=== PATIENT | female | born 1960 | race Caucasian/White ===

== ENCOUNTER → 2016-12-18 | Outpatient (REF) | payer OTHER ==
[~2016-12-18] MED LIST: CIPR500T89 PO; METR500T10 PO; ULTR50TA PO; ZOFR4TAB3 PO
== END ==
LOC: M SFHCWAGY 09:15
PROVIDERS: ATTEND Nurse Practitioner Women's Health
DX: Z12.4 Encounter for screening for malignant neoplasm of cervix (principal)

== ENCOUNTER → 2016-12-18 | Outpatient (CLI) | payer OTHER ==
--- NOTE | 2016-12-18 09:57 | REPMRS ---
Patient History The patient states she had a clinical breast exam in 12/24 Patient is postmenopausal and had first child at age 38. Family history of breast cancer in sister under age 50. Digital Woman Screen Mammo: December 18, 2016 - Exam #: [id number] Bilateral CC and MLO view(s) were taken. Technologist: Tiffanie Estevez, Technologist Prior study comparison: December 14, 2015, digital woman screen mammo performed at [facility]. December 10, 2014, digital woman screen mammo performed at [facility]. FINDINGS: There are scattered fibroglandular densities. There has been no change in the appearance of the mammogram from the prior studies. There is a mild amount of residual fibroglandular tissue which is fairly symmetric. There is no interval development of dominant mass, architectural distortion, or clustered microcalcification suggestive of malignancy. ASSESSMENT: BI-RADS/ACR category 1 mammogram. Negative. Recommendation Routine screening mammogram in 1 year (for women over age 40). This mammogram was interpreted with the aid of an FDA-approved computer-aided dectection system. Electronically Signed By: Glen Langford MD 12/18/16 0957
== END ==
LOC: M WHC 08:42
PROVIDERS: ATTEND Nurse Practitioner Women's Health
DX: Z12.31 Encounter for screening mammogram for malignant neoplasm of breast (principal); Z78.0 Asymptomatic menopausal state; Z80.3 Family history of malignant neoplasm of breast

== ENCOUNTER 2016-12-24 11:30 | Emergency (ER) | payer OTHER ==
[~2016-12-24] VITALS: Ht 157.5 cm; Wt 117.9 kg
[2016-12-24] MEDS ORDERED: NS 1,000 ML IV ONE (12:45)
[2016-12-24] MEDS ORDERED: ONDANSETRON 4MG/2ML VIAL (J2405) IV ONE (12:45)
[2016-12-24] MEDS ORDERED: MORPHINE 2 MG/ML 1ML SYRINGE IV PRN (12:45)
[2016-12-24] MEDS ORDERED: ISOVUE-370 76% 100ML VIAL (Q9967) As Ordered ONE (12:51)
[2016-12-24 13:46] LABS: BASO # 0.1 K/mm3 (0.0-0.2); BASO % 0.6 % (0.0-1.0); EOS # 0.7 K/mm3 (0.0-0.50); EOS % 5.1 % (0.0-3.0); LARGE UNSTAINED CELL # 0.2 K/mm3 (0.0-0.4); LARGE UNSTAINED CELL % 1.6 % (0.0-4.0); LYMPH # 3.6 K/mm3 (1.5-4.5); LYMPH % 24.6 % (24.0-44.0); MEAN CORPUSCULAR HEMOGLOBIN 28.7 pg (27.0-33.0); MEAN CORPUSCULAR HGB CONC 32.5 g/dl (32.0-36.5); MEAN CORPUSCULAR VOLUME 88.2 fl (80.0-96.0); MONO # 0.7 K/mm3 (0.0-0.8); MONO % 5.2 % (0.0-5.0); NEUTROPHILS # 8.7 K/mm3 (1.8-7.7); NEUTROPHILS % 62.8 % (36.0-66.0); PLATELET COUNT, AUTOMATED 402 k/mm3 (150-450); RED CELL DISTRIBUTION WIDTH 12.4 % (11.5-14.5); WHITE BLOOD COUNT 13.8 K/mm3 (4.0-10.0)
[2016-12-24 13:48] LABS: INR 1.02
[2016-12-24 14:08] LABS: ALBUMIN 3.1 GM/DL (3.2-5.2); ALBUMIN/GLOBULIN RATIO 0.66 (1.00-1.93); ALKALINE PHOSPHATASE 90 U/L (45-117); ALT/SGPT 23 U/L (12-78); ANION GAP 7 MEQ/L (8-16); AST/SGOT 15 U/L (15-37); BILIRUBIN,DIRECT < 0.1 MG/DL (0.0-0.2); BILIRUBIN,TOTAL 0.4 MG/DL (0.2-1.0); BLOOD UREA NITROGEN 8 MG/DL (7-18); CALCIUM LEVEL 8.7 MG/DL (8.5-10.1); CARBON DIOXIDE LEVEL 31 MEQ/L (21-32); CHLORIDE LEVEL 101 MEQ/L (98-107); CREATININE FOR GFR 0.71 MG/DL (0.55-1.02); GLOMERULAR FILTRATION RATE > 60.0 (>51); GLUCOSE, FASTING 117 MG/DL (70-105); POTASSIUM SERUM 3.6 MEQ/L (3.5-5.1); SODIUM LEVEL 139 MEQ/L (136-145); TOTAL PROTEIN 7.8 GM/DL (6.4-8.2)
--- NOTE | 2016-12-24 15:10 | REP ---
CT study abdomen and pelvis with IV but without oral contrast: History: Left lower quadrant pain, question diverticulitis. CT contrast dose: 100 ml of Isovue [address] findings: Preliminary mail clerk radiograph demonstrates an unremarkable bowel gas pattern. The lung bases are clear except for some mild linear plate-like atelectasis in the left lower lobe. There is moderate diffuse fatty infiltration of the liver with areas of fat sparing near the gallbladder. There are two small gallstones in the neck of the gallbladder. No adrenal lesion is seen on either side. The kidneys enhance symmetrically and are morphologically intact. The right kidney is somewhat ptotic. Small and large intestinal bowel loops are normal in the upper abdomen. There is no evidence of free intraperitoneal air. Pelvic CT images demonstrate a segment of rectosigmoid colon involved with mural thickening and pericolonic fat stranding. There is diverticulosis in this segment of the colon and the findings are compatible with acute diverticulitis. No abscess seen. No bony destructive lesion is appreciated. Impression: 1. Findings compatible with acute diverticulitis rectosigmoid colon without evidence of abscess or free air. 2. Moderate diffuse fatty infiltration of the liver. 3. Cholelithiasis. Signed by Gregg Richards MD 12/24/2016 06:27 P
[2016-12-24] MEDS ORDERED: METR500T10 PO (15:22)
[2016-12-24] MEDS ORDERED: ZOFR4TAB3 PO (15:22)
[2016-12-24] MEDS ORDERED: ULTR50TA PO (15:22)
[2016-12-24] MEDS ORDERED: CIPR500T89 PO (15:22)
[2016-12-24 15:37] VITALS: BP 142/93
== END 2016-12-24 15:39 | disposition home or self-care (01) ==
LOC: M ED 12:57
DX: K80.20 Calculus of gallbladder without cholecystitis without obstruction (principal); K57.32 Diverticulitis of large intestine without perforation or abscess without bleeding
CPT/HCPCS: 36415; 74177; 80048; 80076; 81001; 83605; 83690; 85025; 85610; 85730; 96361; 96374; 96375; 99283; J2405; Q9967

== ENCOUNTER 2017-04-15 08:45 | Outpatient (CLI) | payer OTHER ==
[~2017-04-15] VITALS: Ht 157.5 cm; Wt 117.9 kg
[~2017-04-15 08:45] MED LIST changes: +CIPR-249 PO; -CIPR500T89 PO; +METR1TAB66 PO; -METR500T10 PO; +NS 1,000 ML IV SCH; -ULTR50TA PO; +ULTR50TA8 PO
[2017-04-15] MEDS ORDERED: LIDOCAINE 2% INJ 100 MG/5 ML SDV (FOR ANES.) As Ordered ONE (08:47)
[2017-04-15] MEDS ORDERED: PROPOFOL 200 MG/20 ML VIAL As Ordered ONE (08:47)
--- NOTE | 2017-04-15 09:36 | ROOR ---
Patient Name: Claire Mishra Procedure Date: 04/15/2017 9:12 AM Date of : 1960 Age: 57 Room: [facility] Gender: Female Note Status: Finalized Procedure: Total Colonoscopy to Cecum + Cold Snare Polypectomy + Hemoclips Indications: Screening for colorectal malignant neoplasm Providers: José Luis Conley MD Referring MD: KAMALJIT WEINSTEIN MD Requesting Provider: Medicines: Monitored Anesthesia Care Complications: No immediate complications. Procedure: Pre-Anesthesia Assessment: - The heart rate, respiratory rate, oxygen saturations, blood pressure, adequacy of pulmonary ventilation, and response to care were monitored throughout the procedure. The Colonoscope was introduced through the anus and advanced to the cecum, identified by appendiceal orifice and ileocecal valve. The colonoscopy was performed without difficulty. The patient tolerated the procedure well. The quality of the bowel preparation was good. Findings: The perianal and digital rectal examinations were normal. Non-bleeding internal hemorrhoids were found during retroflexion. The hemorrhoids were small and Grade I (internal hemorrhoids that do not prolapse). Scattered small-mouthed diverticula were found in the recto-sigmoid colon, sigmoid colon and descending colon. A medium polyp was found in the proximal transverse colon. The polyp was sessile. The polyp was removed with a cold snare. Resection and retrieval were complete. To prevent bleeding after the polypectomy, three hemostatic clips were successfully placed (MR conditional). There was no bleeding at the end of the procedure. The exam was otherwise without abnormality on direct and retroflexion views. Impression: - Non-bleeding internal hemorrhoids. - Diverticulosis in the recto-sigmoid colon, in the sigmoid colon and in the descending colon. - One medium polyp in the proximal transverse colon, removed with a cold snare. Resected and retrieved. Clips (MR conditional) were placed. - The examination was otherwise normal on direct and retroflexion views. - The exam was otherwise normal to the cecum. Recommendation: - Patient has a contact number available for emergencies. The signs and symptoms of potential delayed complications were discussed with the patient. Return to normal activities tomorrow. Written discharge instructions were provided to the patient. - High fiber diet. - Discharge patient to home. - Continue present medications. - Await pathology results. - Telephone GI clinic for pathology results in 1 week. - Repeat colonoscopy for surveillance based on pathology results. - Return to referring physician. - Check Portal Online for Path Results.([email or web address]) - The findings and recommendations were discussed with the patient's family. José Luis Conley MD José Luis Conley MD 04/15/2017 9:36:26 AM This report has been signed electronically. Number of Addenda: 0 Note Initiated On: 04/15/2017 9:12 AM Estimated Blood Loss: Estimated blood loss: none.
[2017-04-15 09:55] VITALS: BP 149/89
== END 2017-04-15 10:00 | disposition home or self-care (01) ==
LOC: M OPP 08:45
PROVIDERS: ATTEND Internal Medicine Gastroenterology
DX: Z12.11 Encounter for screening for malignant neoplasm of colon (principal); K64.0 First degree hemorrhoids; K57.30 Diverticulosis of large intestine without perforation or abscess without bleeding; D12.3 Benign neoplasm of transverse colon; M19.90 Unspecified osteoarthritis, unspecified site; Z87.891 Personal history of nicotine dependence

== ENCOUNTER 2017-08-26 15:22 | Emergency (ER) | payer OTHER ==
[~2017-08-26] VITALS: Ht 157.5 cm; Wt 113.6 kg
[~2017-08-26 15:22] MED LIST changes: -NS 1,000 ML IV SCH
[2017-08-26] MEDS ORDERED: IBUPROFEN 600 MG TAB PO ONE (17:15)
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
[2017-08-26] MEDS ORDERED: NAPR500T3 PO (18:26)
[2017-08-26] MEDS ORDERED: ROBA500T PO (18:26)
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
[2017-08-26 18:35] VITALS: BP 178/76
== END 2017-08-26 18:39 | disposition home or self-care (01) ==
LOC: M ED 17:25
DX: Z04.1 Encounter for examination and observation following transport accident (principal); M62.830 Muscle spasm of back; M54.5 Low back pain; V49.49XA Driver injured in collision with other motor vehicles in traffic accident, initial encounter; Y92.410 Unspecified street and highway as the place of occurrence of the external cause; Y93.89 Activity, other specified; Y99.8 Other external cause status

== ENCOUNTER 2017-09-04 09:13 | Emergency (ER) | payer OTHER | END 2017-09-04 09:50 | disposition home or self-care (01) | LOC: M ED 09:13 | DX: M54.12 Radiculopathy, cervical region (principal); M54.41 Lumbago with sciatica, right side; Z87.891 Personal history of nicotine dependence | CPT/HCPCS: 99283 ==

== ENCOUNTER 2017-09-29 11:30 | Emergency (ER) | payer OTHER | END 2017-09-29 14:23 | disposition home or self-care (01) | LOC: M ED 11:30 | DX: M54.2 Cervicalgia (principal); Z87.891 Personal history of nicotine dependence; I10 Essential (primary) hypertension; M54.9 Dorsalgia, unspecified; Z79.899 Other long term (current) drug therapy | CPT/HCPCS: 99283 ==

== ENCOUNTER → 2017-12-04 | Outpatient (CLI) | payer OTHER | LOC: M RAD 12:56 | DX: M51.26 Other intervertebral disc displacement, lumbar region (principal); M51.27 Other intervertebral disc displacement, lumbosacral region; M48.00 Spinal stenosis, site unspecified | CPT/HCPCS: 72148 ==

== ENCOUNTER → 2018-03-25 | Outpatient (CLI) | payer OTHER ==
[2018-03-25 09:41] LABS: HEMOGLOBIN 13.5 g/dl (12.0-15.5); MEAN CORPUSCULAR HEMOGLOBIN 29.1 pg (27.0-33.0); MEAN CORPUSCULAR HGB CONC 32.9 g/dl (32.0-36.5); MEAN CORPUSCULAR VOLUME 88.4 fl (80.0-96.0); PLATELET COUNT, AUTOMATED 301 10^3/uL (150-450); RED BLOOD COUNT 4.64 10^6/uL (4.00-5.40); RED CELL DISTRIBUTION WIDTH 13.4 % (11.5-14.5); WHITE BLOOD COUNT 8.4 10^3/uL (4.0-10.0)
[2018-03-25 10:05] LABS: ESTIMATED AVERAGE GLUCOSE 137 MG/DL (60-110); HEMOGLOBIN A1c 6.4 %
[2018-03-25 10:07] LABS: ALBUMIN 3.4 GM/DL (3.2-5.2); ALBUMIN/GLOBULIN RATIO 0.97 (1.00-1.93); ALKALINE PHOSPHATASE 76 U/L (45-117); ALT/SGPT 24 U/L (12-78); ANION GAP 8 MEQ/L (8-16); AST/SGOT 21 U/L (7-37); BILIRUBIN,TOTAL 0.5 MG/DL (0.2-1.0); BLOOD UREA NITROGEN 11 MG/DL (7-18); CALCIUM LEVEL 8.4 MG/DL (8.5-10.1); CARBON DIOXIDE LEVEL 28 MEQ/L (21-32); CHLORIDE LEVEL 107 MEQ/L (98-107); CHOLESTEROL LEVEL 219 MG/DL (<200); GLOMERULAR FILTRATION RATE > 60.0 (>51); GLUCOSE, FASTING 126 MG/DL (70-100); HDL CHOLESTEROL 25 MG/DL (>40); NON-HDL-C 194 MG/DL; POTASSIUM SERUM 4.3 MEQ/L (3.5-5.1); SODIUM LEVEL 143 MEQ/L (136-145); TOTAL PROTEIN 6.9 GM/DL (6.4-8.2); TRIGLYCERIDES LEVEL 290 MG/DL (<150)
[2018-03-25 11:38] LABS: TOTAL 25(OH) VITAMIN D 20.5 NG/ML (30.0-100.0)
== END ==
LOC: M LAB 08:18
DX: E03.9 Hypothyroidism, unspecified (principal); R53.83 Other fatigue; I10 Essential (primary) hypertension; R94.31 Abnormal electrocardiogram [ECG] [EKG]
CPT/HCPCS: 71046

== ENCOUNTER 2018-04-07 20:50 | Emergency (ER) | payer OTHER | END 2018-04-07 22:29 | disposition home or self-care (01) | LOC: M ED 20:50 | DX: T81.31XA Disruption of external operation (surgical) wound, not elsewhere classified, initial encounter (principal); Y74.3 Surgical instruments, materials and general hospital and personal-use devices (including sutures) associated with adverse incidents; Z79.899 Other long term (current) drug therapy | CPT/HCPCS: 99283 ==

== ENCOUNTER → 2018-06-11 | Outpatient (REF) | payer OTHER ==
[2018-06-14 15:28] LABS: HPV HYBRID CAPTURE II Negative (Negative)
== END ==
LOC: M SFHCWAGY 13:39
DX: Z12.4 Encounter for screening for malignant neoplasm of cervix (principal)

== ENCOUNTER → 2018-06-11 | Outpatient (CLI) | payer OTHER | LOC: M WHC 13:25 | DX: Z12.31 Encounter for screening mammogram for malignant neoplasm of breast (principal) | CPT/HCPCS: 77067 ==

== ENCOUNTER → 2018-06-19 | Outpatient (CLI) | payer OTHER | LOC: M WHC 13:18 | DX: N95.0 Postmenopausal bleeding (principal); R93.89 Abnormal findings on diagnostic imaging of other specified body structures | CPT/HCPCS: 76830 ==

== ENCOUNTER → 2018-06-20 | Outpatient (REF) | payer OTHER | LOC: M SFHCWAGY 11:34 | DX: N95.0 Postmenopausal bleeding (principal); R93.89 Abnormal findings on diagnostic imaging of other specified body structures; N85.8 Other specified noninflammatory disorders of uterus | CPT/HCPCS: 88305 ==

== ENCOUNTER → 2019-03-24 | Outpatient (CLI) | payer OTHER ==
[~2019-03-24] MED LIST changes: +METO1TAB87 PO; +METR-265 PO; -METR1TAB66 PO; +NAPR-885 PO; +PRAV40TA2; +ROBA500T PO; +ROBA750T4 PO; +SOMA250T PO; +ZOFR4TAB14 PO; -ZOFR4TAB3 PO
[2019-03-24 07:17] LABS: HEMATOCRIT 43.9 % (36.0-47.0); HEMOGLOBIN 14.4 g/dl (12.0-15.5); MEAN CORPUSCULAR HEMOGLOBIN 29.3 pg (27.0-33.0); MEAN CORPUSCULAR HGB CONC 32.8 g/dl (32.0-36.5); MEAN CORPUSCULAR VOLUME 89.2 fl (80.0-96.0); PLATELET COUNT, AUTOMATED 336 10^3/uL (150-450); RED BLOOD COUNT 4.92 10^6/uL (4.00-5.40); WHITE BLOOD COUNT 9.4 10^3/uL (4.0-10.0)
[2019-03-24 07:35] LABS: HEMOGLOBIN A1c 6.4 %
[2019-03-24 07:54] LABS: ALBUMIN 3.5 GM/DL (3.2-5.2); ALT/SGPT 30 U/L (12-78); BILIRUBIN,TOTAL 0.5 MG/DL (0.2-1.0); BLOOD UREA NITROGEN 12 MG/DL (7-18); CALCIUM LEVEL 8.7 MG/DL (8.5-10.1); CARBON DIOXIDE LEVEL 31 MEQ/L (21-32); CHLORIDE LEVEL 107 MEQ/L (98-107); CHOLESTEROL LEVEL 209 MG/DL (<200); CHOLESTEROL RISK RATIO 8.038 (<5); GLOMERULAR FILTRATION RATE > 60.0 (>51); GLUCOSE, FASTING 114 MG/DL (70-100); HDL CHOLESTEROL 26 MG/DL (>40); LDL CHOLESTEROL 123 MG/DL (<100); NON-HDL-C 183 MG/DL; POTASSIUM SERUM 5.1 MEQ/L (3.5-5.1); SODIUM LEVEL 142 MEQ/L (136-145); TRIGLYCERIDES LEVEL 302 MG/DL (<150)
[2019-03-24 09:57] LABS: TOTAL 25(OH) VITAMIN D 47.9 NG/ML (30.0-100.0)
== END ==
LOC: M LAB 06:40
PROVIDERS: ATTEND Family Medicine
DX: I10 Essential (primary) hypertension (principal); E11.9 Type 2 diabetes mellitus without complications

== ENCOUNTER → 2019-07-14 | Outpatient (CLI) | payer OTHER ==
--- NOTE | 2019-07-14 13:01 | REPMRS ---
Patient History The patient states she had a clinical breast exam in 07/2019. Patient is postmenopausal, has history of endometrial cancer at age 58, and had first child at age 38. Family history of breast cancer under age 50 in sister. Digital Woman Screen Mammo: July 14, 2019 - Exam #: [id number] Bilateral CC and MLO view(s) were taken. Technologist: Tiffanie Estevez, Technologist Prior study comparison: June 11, 2018, bilateral digital woman screen mammo performed at [facility]. December 18, 2016, digital woman screen mammo performed at [facility]. December 14, 2015, digital woman screen mammo performed at [facility]. FINDINGS: The breast tissue is almost entirely fat. There has been no change in the appearance of the mammogram from the prior studies. There is no interval development of dominant mass, architectural distortion, or grouped microcalcification typical of malignancy. 3-D tomosynthesis shows no additional findings. Assessment: BI-RADS/ACR category 1 mammogram. Negative Mammogram. Recommendation Breast MRI of both breasts in 6 months. Routine screening mammogram of both breasts in 1 year (for women over age 40). This patient's Lifetime Breast Cancer RIsk is estimated at 26.9 %. Annual screening Breast MRI scanniing is recommended for patient's whose lifetime risk assessment is over 20%. This mammogram was interpreted with the aid of an FDA-approved computer-aided dectection system. Electronically Signed By: Heber Richards MD 07/14/19 [id number]
== END ==
LOC: M WHC 11:43
PROVIDERS: ATTEND Nurse Practitioner Women's Health
DX: Z12.31 Encounter for screening mammogram for malignant neoplasm of breast (principal); Z80.3 Family history of malignant neoplasm of breast

== ENCOUNTER → 2019-08-11 | Outpatient (REF) | payer OTHER | LOC: M LAB REF 09:28 | PROVIDERS: ATTEND Physician Assistant | DX: J02.9 Acute pharyngitis, unspecified (principal) ==

== ENCOUNTER → 2019-08-13 | Outpatient (REF) | payer OTHER | LOC: M PLALAB 15:23 | PROVIDERS: ATTEND Nurse Practitioner Women's Health | DX: Z12.72 Encounter for screening for malignant neoplasm of vagina (principal); Z90.710 Acquired absence of both cervix and uterus | CPT/HCPCS: 87624; G0123 ==

== ENCOUNTER → 2019-11-12 | Outpatient (REF) | payer OTHER | LOC: M SFHCWAGY 10:51 | PROVIDERS: ATTEND Nurse Practitioner Women's Health | DX: Z12.72 Encounter for screening for malignant neoplasm of vagina (principal); Z85.41 Personal history of malignant neoplasm of cervix uteri ==

== ENCOUNTER → 2020-03-28 | Outpatient (CLI) | payer OTHER ==
[~2020-03-28] MED LIST changes: +PROHANCE 279.3MG/ML 15ML VIAL As Ordered ONE; +PROHANCE 279.3MG/ML 5ML VIAL As Ordered ONE
--- NOTE | 2020-03-28 13:37 | REP ---
BILATERAL BREAST MRI STUDY WITHOUT AND WITH IV GADOLINIUM: HISTORY: Genetic susceptibility to malignant neoplasm of the breast. Comparison mammography July 14, 2019. TECHNIQUE: Three Cecile MRI imaging was performed with a dedicated breast coil. Axial, coronal, and sagittal T1 and T2-weighted scans were obtained with and without fat saturation in the usual fashion. The study includes dynamically acquired post gadolinium enhanced imaging subtraction imaging. Maximal intensity projection and multiplanar re-formation imaging is included as well. The study was interpreted with the aid of [employer], an FDA approved computer-aided detection (CAD) software program, on a dedicated breast MRI work station. The gadolinium enhancement dose is 20 mL of intravenous ProHance. FINDINGS: There is a mild pattern of scattered fibroglandular tissue. Breast parenchyma is predominately fat replaced. There is no evidence of axillary adenopathy or significant breast cystic change on either side. No suspicious morphologic abnormality is identified in either breast on high-resolution pre- and postcontrast T1- and T2-weighted scans. Dynamically acquired sequential post contrast images show no suspicious focus of enhancement or washout in either breast. Subtraction images show no additional abnormality. There is no significant background parenchymal enhancement. IMPRESSION: BIRADS category 1 negative findings. Repeat screening breast MRI six scanning is recommended 1 year. Annual screening mammography should continue as well. Electronically Signed by Gregg Richards MD 03/28/2020 04:18 P
== END ==
LOC: M RAD 08:17
PROVIDERS: ATTEND Surgery
DX: Z15.01 Genetic susceptibility to malignant neoplasm of breast (principal)

== ENCOUNTER → 2020-07-15 | Outpatient (REF) | payer OTHER ==
[~2020-07-15] MED LIST changes: -PROHANCE 279.3MG/ML 15ML VIAL As Ordered ONE; -PROHANCE 279.3MG/ML 5ML VIAL As Ordered ONE
== END ==
LOC: M SFHCWAGY 10:05
PROVIDERS: ATTEND Nurse Practitioner Women's Health
DX: Z12.72 Encounter for screening for malignant neoplasm of vagina (principal); Z85.41 Personal history of malignant neoplasm of cervix uteri
CPT/HCPCS: 87624; G0123

== ENCOUNTER → 2020-07-15 | Outpatient (CLI) | payer OTHER ==
--- NOTE | 2020-07-15 16:45 | REPMRS ---
Patient History The patient states she had a clinical breast exam in 07/2020. Patient is postmenopausal, has history of endometrial cancer at age 58, and had first child at age 38. Family history of breast cancer under age 50 in sister, pancreatic cancer at age 65 in brother. No Hormone Replacement Therapy 3D TOMOSYNTHESIS WAS PERFORMED. Volpara breast density a. Digital Woman Screen Mammo: July 15, 2020 - Exam #: [id number] Bilateral CC and MLO view(s) were taken. Technologist: Destinee Scherer, Technologist Prior study comparison: July 14, 2019, bilateral digital woman screen mammo performed at [facility]. June 11, 2018, bilateral digital woman screen mammo performed at [facility]. FINDINGS: There are scattered fibroglandular densities. There has been no change in the appearance of the mammogram from the prior studies. There is a mild amount of residual fibroglandular tissue which is fairly symmetric. There is no interval development of dominant mass, architectural distortion, or clustered microcalcification suggestive of malignancy. Assessment: BI-RADS/ACR category 1 mammogram. Negative Mammogram. Recommendation Routine screening mammogram in 1 year (for women over age 40). This mammogram was interpreted with the aid of an FDA-approved computer-aided dectection system. THE LIFETIME RISK OF BREAST CANCER IS 26.2%, THEREFORE SUPPLEMENTAL SCREENING MRI OF THE BREASTS IS RECOMMENDED IN 6 MONTHS. Electronically Signed By: Glen Langford MD 07/15/20 [id number]
== END ==
LOC: M WHC 15:40
PROVIDERS: ATTEND Nurse Practitioner Women's Health
DX: Z12.31 Encounter for screening mammogram for malignant neoplasm of breast (principal); Z15.89 Genetic susceptibility to other disease; Z80.3 Family history of malignant neoplasm of breast; Z80.0 Family history of malignant neoplasm of digestive organs; Z85.44 Personal history of malignant neoplasm of other female genital organs

== ENCOUNTER → 2020-07-23 | Outpatient (CLI) | payer OTHER ==
[2020-07-23 09:08] LABS: HEMATOCRIT 44.6 % (36.0-47.0); MEAN CORPUSCULAR HEMOGLOBIN 28.3 pg (27.0-33.0); MEAN CORPUSCULAR HGB CONC 31.4 g/dl (32.0-36.5); MEAN CORPUSCULAR VOLUME 90.1 fl (80.0-96.0); PLATELET COUNT, AUTOMATED 352 10^3/uL (150-450); RED BLOOD COUNT 4.95 10^6/uL (4.00-5.40); WHITE BLOOD COUNT 8.8 10^3/uL (4.0-10.0)
[2020-07-23 09:37] LABS: ALBUMIN 3.5 GM/DL (3.2-5.2); ALT/SGPT 20 U/L (12-78); BILIRUBIN,TOTAL 0.5 MG/DL (0.2-1.0); BLOOD UREA NITROGEN 14 MG/DL (7-18); CALCIUM LEVEL 8.6 MG/DL (8.5-10.1); CARBON DIOXIDE LEVEL 25 MEQ/L (21-32); CHLORIDE LEVEL 107 MEQ/L (98-107); CHOLESTEROL LEVEL 164 MG/DL (<200); GLOMERULAR FILTRATION RATE > 60.0 (>51); GLUCOSE, FASTING 116 MG/DL (70-100); HDL CHOLESTEROL 31 MG/DL (>40); LDL CHOLESTEROL 98 MG/DL (<100); NON-HDL-C 133 MG/DL; POTASSIUM SERUM 4.5 MEQ/L (3.5-5.1); SODIUM LEVEL 140 MEQ/L (136-145); THYROID STIMULATING HORMONE 0.837 uIU/ML (0.358-3.740); TRIGLYCERIDES LEVEL 177 MG/DL (<150)
[2020-07-23 09:44] LABS: HEMOGLOBIN A1c 5.9 %
[2020-07-25 11:48] LABS: TOTAL 25(OH) VITAMIN D 81.5 NG/ML (30.0-100.0)
== END ==
LOC: M LAB 08:23
PROVIDERS: ATTEND Family Medicine
DX: D64.9 Anemia, unspecified (principal); R53.83 Other fatigue; E03.9 Hypothyroidism, unspecified

== ENCOUNTER 2020-11-12 21:14 | Emergency (ER) | payer OTHER ==
[~2020-11-12] VITALS: Ht 157.5 cm; Wt 116.3 kg
[2020-11-12] MEDS ORDERED: LEVO75TA4 PO (21:27)
[2020-11-12] MEDS ORDERED: METF500T13 PO (21:27)
[2020-11-12] MEDS ORDERED: LIDOCAINE 2% MDV 20ML VIAL SC ONE (22:10)
[2020-11-12] MEDS ORDERED: BOOSTRIX/ADACEL VACCINE (DIPHTH/PERTUSS/ACELL/TETANUS) 0.5ML SYR IM ONE (22:10)
[2020-11-12] MEDS ORDERED: CEPH500C PO (22:48)
[2020-11-12] MEDS ORDERED: CEPHALEXIN 500 MG CAP PO ONE (22:50)
[2020-11-12] MEDS ORDERED: NEOSPORIN OINT 0.9 GM PKT TOP ONE (22:50)
[2020-11-12 23:02] VITALS: BP 170/82
== END 2020-11-12 23:03 | disposition home or self-care (01) ==
LOC: M ED 21:14
DX: S61.216A Laceration without foreign body of right little finger without damage to nail, initial encounter (principal); W26.8XXA Contact with other sharp object(s), not elsewhere classified, initial encounter; Y92.018 Other place in single-family (private) house as the place of occurrence of the external cause; I10 Essential (primary) hypertension; E11.9 Type 2 diabetes mellitus without complications; E03.9 Hypothyroidism, unspecified; E78.00 Pure hypercholesterolemia, unspecified; Z79.899 Other long term (current) drug therapy; Z79.84 Long term (current) use of oral hypoglycemic drugs

== ENCOUNTER → 2021-03-06 | Outpatient (CLI) | payer OTHER ==
[~2021-03-06] MED LIST changes: +CEPH500C PO; +LEVO75TA4 PO; +METF500T13 PO
[2021-03-06 11:33] LABS: BLOOD UREA NITROGEN 14 MG/DL (7-18); CREATININE FOR GFR 0.61 MG/DL (0.55-1.30); GLOMERULAR FILTRATION RATE > 60.0 (>51)
== END ==
LOC: M PLALAB 08:31
PROVIDERS: ATTEND Nurse Practitioner Women's Health
DX: Z01.812 Encounter for preprocedural laboratory examination (principal); Z79.899 Other long term (current) drug therapy

== ENCOUNTER → 2021-03-10 | Outpatient (CLI) | payer OTHER ==
[~2021-03-10] MED LIST changes: +PROHANCE 279.3MG/ML 15ML VIAL As Ordered ONE; +PROHANCE 279.3MG/ML 5ML VIAL As Ordered ONE
--- NOTE | 2021-03-10 16:49 | REP ---
INDICATION: (+) GENE SCREENING HIGH RISK BREAST SCREENING. COMPARISON: Comparison breast MRI study is from March 28, 2020. Comparison mammography July 15, 2020. TECHNIQUE: Three Cecile MRI imaging was performed with a dedicated breast coil. Axial, coronal, and sagittal T1 and T2 weighted scans were obtained with and without fat saturation in the usual fashion. The study includes dynamically acquired post gadolinium-enhanced imaging with image subtraction. Maximum intensity projection and multi planar reformation imaging is included as well. This study is interpreted with the aid of [employer], an FDA approved computer aided detection (CAD) software program, on a dedicated breast MRI workstation. The gadolinium enhancement dose is 20 mL of intravenous ProHance. FINDINGS: There is a minimal amount of fibroglandular tissue bilaterally corresponding with the mammographic pattern. There is minimal background parenchymal enhancement. There is no evidence of axillary lymphadenopathy or significant breast cystic change. High-resolution pre and post-contrast T1 and T2 weighted scans show no suspicious morphologic abnormality in either breast. Dynamically acquired sequential postcontrast images show no suspicious area of enhancement and washout kinetics in either breast to suggest malignancy. Subtraction images show no additional abnormality. There has been no apparent change in the MR findings since the March 28, 2020 prior study. IMPRESSION: BI-RADS category 1 negative bilateral breast MRI findings. <Electronically signed by Heber Richards > 03/10/21 [id number]
== END ==
LOC: M RAD 14:44
PROVIDERS: ATTEND Nurse Practitioner Women's Health
DX: Z15.01 Genetic susceptibility to malignant neoplasm of breast (principal)
CPT/HCPCS: A9576; C8908

== ENCOUNTER → 2021-04-03 | Outpatient (CLI) | payer OTHER ==
[~2021-04-03] MED LIST changes: -PROHANCE 279.3MG/ML 15ML VIAL As Ordered ONE; -PROHANCE 279.3MG/ML 5ML VIAL As Ordered ONE
[2021-04-03 08:14] LABS: CREATININE FOR GFR 0.66 MG/DL (0.55-1.30); GLOMERULAR FILTRATION RATE > 60.0 (>51)
== END ==
LOC: M LAB 07:10
PROVIDERS: ATTEND Nurse Practitioner Family
DX: G11.3 Cerebellar ataxia with defective DNA repair (principal)

== ENCOUNTER → 2021-04-03 | Outpatient (CLI) | payer OTHER ==
[2021-04-03 07:41] LABS: HEMATOCRIT 42.9 % (36.0-47.0); HEMOGLOBIN 13.8 g/dl (12.0-15.5); MEAN CORPUSCULAR HEMOGLOBIN 29.1 pg (27.0-33.0); MEAN CORPUSCULAR HGB CONC 32.2 g/dl (32.0-36.5); MEAN CORPUSCULAR VOLUME 90.5 fl (80.0-96.0); PLATELET COUNT, AUTOMATED 336 10^3/uL (150-450); RED BLOOD COUNT 4.74 10^6/uL (4.00-5.40); WHITE BLOOD COUNT 10.2 10^3/uL (4.0-10.0)
[2021-04-03 07:56] LABS: HEMOGLOBIN A1c 6.7 %
[2021-04-03 08:24] LABS: ALBUMIN 3.4 GM/DL (3.2-5.2); ALT/SGPT 27 U/L (12-78); BILIRUBIN,TOTAL 0.5 MG/DL (0.2-1.0); BLOOD UREA NITROGEN 14 MG/DL (7-18); CALCIUM LEVEL 8.5 MG/DL (8.5-10.1); CARBON DIOXIDE LEVEL 29 MEQ/L (21-32); CHLORIDE LEVEL 108 MEQ/L (98-107); CHOLESTEROL LEVEL 162 MG/DL (<200); CREATININE FOR GFR 0.65 MG/DL (0.55-1.30); GLOMERULAR FILTRATION RATE > 60.0 (>51); GLUCOSE, FASTING 152 MG/DL (70-100); HDL CHOLESTEROL 26 MG/DL (>40); LDL CHOLESTEROL 91 MG/DL (<100); NON-HDL-C 136 MG/DL; POTASSIUM SERUM 4.4 MEQ/L (3.5-5.1); SODIUM LEVEL 141 MEQ/L (136-145); TOTAL PROTEIN 6.8 GM/DL (6.4-8.2); TRIGLYCERIDES LEVEL 223 MG/DL (<150)
[2021-04-03 10:52] LABS: TOTAL 25(OH) VITAMIN D 68.3 NG/ML (30.0-100.0)
== END ==
LOC: M LAB 07:13
PROVIDERS: ATTEND Family Medicine
DX: E03.9 Hypothyroidism, unspecified (principal); I10 Essential (primary) hypertension; E11.9 Type 2 diabetes mellitus without complications

== ENCOUNTER → 2021-07-18 | Outpatient (REF) | payer OTHER | LOC: M SFHCWAGY 13:25 | PROVIDERS: ATTEND Nurse Practitioner Women's Health | DX: Z12.72 Encounter for screening for malignant neoplasm of vagina (principal) ==

== ENCOUNTER → 2021-07-18 | Outpatient (CLI) | payer OTHER ==
--- NOTE | 2021-07-18 10:39 | REPMRS ---
Patient History The patient states she had a clinical breast exam on 07-18-2021. Family history of breast cancer under age 50 in sister, pancreatic cancer at age 65 in brother. No Hormone Replacement Therapy Tomosynthesis is performed. Volpara breast density is a. Patient states no breast complaints today. Patient has signed MRS History Sheet. Digital Woman Screen Mammo: July 18, 2021 - Exam #: [id number] Bilateral CC and MLO view(s) were taken. Technologist: Ashlee Katz, [place] Strip Inspector Prior study comparison: July 15, 2020, bilateral digital woman screen mammo performed at [facility]. July 14, 2019, bilateral digital woman screen mammo performed at [facility]. FINDINGS: There are scattered fibroglandular densities. There has been no change in the appearance of the mammogram from the prior studies. There is a mild amount of residual fibroglandular tissue which is fairly symmetric. There is no interval development of dominant mass, architectural distortion, or clustered microcalcification suggestive of malignancy. Assessment: BI-RADS/ACR category 1 mammogram. Negative Mammogram. Recommendation Routine screening mammogram in 1 year (for women over age 40). This mammogram was interpreted with the aid of an FDA-approved computer-aided dectection system. The Lifetime Breast Cancer Risk is estimated at 25.5%. Yearly supplemental screening MRI of the breasts is recommended for patients with an elevated lifetime risk of breast cancer of 20% or greater, in addition to annual screening mammography, staggered every 6 months. Electronically Signed By: Glen Langford MD 07/18/21 1038
== END ==
LOC: M WHC 08:19
PROVIDERS: ATTEND Nurse Practitioner Women's Health
DX: Z12.31 Encounter for screening mammogram for malignant neoplasm of breast (principal)

== ENCOUNTER → 2022-04-09 | Outpatient (CLI) | payer OTHER ==
[2022-04-09 13:24] LABS: BLOOD UREA NITROGEN 10 MG/DL (7-18); CALCIUM LEVEL 9.3 MG/DL (8.8-10.2); CARBON DIOXIDE LEVEL 29 MEQ/L (21-32); CHLORIDE LEVEL 102 MEQ/L (98-107); CREATININE FOR GFR 0.71 MG/DL (0.55-1.30); GLOMERULAR FILTRATION RATE > 60.0 (>45); GLUCOSE, FASTING 241 MG/DL (70-100); POTASSIUM SERUM 3.9 MEQ/L (3.5-5.1); SODIUM LEVEL 138 MEQ/L (136-145)
== END ==
LOC: M PLALAB 07:55
PROVIDERS: ATTEND Nurse Practitioner Women's Health
DX: Z91.89 Other specified personal risk factors, not elsewhere classified (principal); Z15.89 Genetic susceptibility to other disease; Z01.812 Encounter for preprocedural laboratory examination

== ENCOUNTER → 2022-04-09 | Outpatient (CLI) | payer OTHER ==
[2022-04-09 12:41] LABS: HEMATOCRIT 43.7 % (36.0-47.0); HEMOGLOBIN 14.1 g/dl (12.0-15.5); MEAN CORPUSCULAR HEMOGLOBIN 29.6 pg (27.0-33.0); MEAN CORPUSCULAR HGB CONC 32.3 g/dl (32.0-36.5); MEAN CORPUSCULAR VOLUME 91.6 fl (80.0-96.0); PLATELET COUNT, AUTOMATED 334 10^3/uL (150-450); RED BLOOD COUNT 4.77 10^6/uL (4.00-5.40); WHITE BLOOD COUNT 8.5 10^3/uL (4.0-10.0)
[2022-04-09 14:07] LABS: ALBUMIN 3.3 GM/DL (3.2-5.2); ALT/SGPT 38 U/L (12-78); BILIRUBIN,TOTAL 0.4 MG/DL (0.2-1.0); BLOOD UREA NITROGEN 10 MG/DL (7-18); CALCIUM LEVEL 9.1 MG/DL (8.8-10.2); CARBON DIOXIDE LEVEL 31 MEQ/L (21-32); CHLORIDE LEVEL 101 MEQ/L (98-107); CHOLESTEROL LEVEL 170 MG/DL (<200); CHOLESTEROL RISK RATIO 7.391 (<5); CREATININE FOR GFR 0.69 MG/DL (0.55-1.30); GLOMERULAR FILTRATION RATE > 60.0 (>45); GLUCOSE, FASTING 253 MG/DL (70-100); HDL CHOLESTEROL 23 MG/DL (>40); HEMOGLOBIN A1c 10.6 %; LDL CHOLESTEROL 77 MG/DL (<100); NON-HDL-C 147 MG/DL; POTASSIUM SERUM 4.8 MEQ/L (3.5-5.1); SODIUM LEVEL 136 MEQ/L (136-145); TOTAL 25(OH) VITAMIN D 85.1 NG/ML (30.0-100.0); TOTAL PROTEIN 6.9 GM/DL (6.4-8.2); TRIGLYCERIDES LEVEL 349 MG/DL (<150)
== END ==
LOC: M PLALAB 07:52
PROVIDERS: ATTEND Family Medicine
DX: D64.9 Anemia, unspecified (principal); R53.83 Other fatigue; E03.9 Hypothyroidism, unspecified

== ENCOUNTER → 2022-04-13 | Outpatient (CLI) | payer OTHER ==
[~2022-04-13] MED LIST changes: +PROHANCE 279.3MG/ML 15ML VIAL ONE; +PROHANCE 279.3MG/ML 5ML VIAL ONE
== END ==
LOC: M PLAIMG 08:56
PROVIDERS: ATTEND Nurse Practitioner Women's Health
DX: Z91.89 Other specified personal risk factors, not elsewhere classified (principal); Z15.89 Genetic susceptibility to other disease; N63.21 Unspecified lump in the left breast, upper outer quadrant; R92.8 Other abnormal and inconclusive findings on diagnostic imaging of breast; N60.11 Diffuse cystic mastopathy of right breast; N60.12 Diffuse cystic mastopathy of left breast
CPT/HCPCS: A9576; C8908

== ENCOUNTER → 2022-05-08 | Outpatient (CLI) | payer OTHER ==
[~2022-05-08] MED LIST changes: -PROHANCE 279.3MG/ML 15ML VIAL ONE; -PROHANCE 279.3MG/ML 5ML VIAL ONE
== END ==
LOC: M WHC 09:21
PROVIDERS: ATTEND Nurse Practitioner Women's Health
DX: R92.8 Other abnormal and inconclusive findings on diagnostic imaging of breast (principal); Z15.01 Genetic susceptibility to malignant neoplasm of breast
CPT/HCPCS: 77065; G0279

== ENCOUNTER → 2022-05-22 | Outpatient (CLI) | payer OTHER ==
[~2022-05-22] MED LIST changes: +**SFHN** LIDOCAINE 1% MDV 20ML VIAL ONE; +**SFHN** SODIUM BICARBONATE 8.4% 10MEQ 10ML VIAL ONE
[2022-05-22 10:47] VITALS: BP 146/74
== END ==
LOC: M WHCPRO 09:34
PROVIDERS: ATTEND Nurse Practitioner Women's Health
DX: C50.412 Malignant neoplasm of upper-outer quadrant of left female breast (principal)

== ENCOUNTER → 2022-06-27 | Outpatient (CLI) | payer OTHER ==
[~2022-06-27] MED LIST changes: -**SFHN** LIDOCAINE 1% MDV 20ML VIAL ONE; -**SFHN** SODIUM BICARBONATE 8.4% 10MEQ 10ML VIAL ONE
[2022-06-27 11:02] LABS: HEMATOCRIT 40.2 % (36.0-47.0); HEMOGLOBIN 13.4 g/dl (12.0-15.5); MEAN CORPUSCULAR HEMOGLOBIN 29.8 pg (27.0-33.0); MEAN CORPUSCULAR HGB CONC 33.3 g/dl (32.0-36.5); MEAN CORPUSCULAR VOLUME 89.3 fl (80.0-96.0); PLATELET COUNT, AUTOMATED 349 10^3/uL (150-450)
[2022-06-27 11:05] LABS: INR 0.88; PROTHROMBIN TIME 12.1 SECONDS (12.5-14.5)
[2022-06-27 11:13] LABS: HEMOGLOBIN A1c 9.1 %
[2022-06-27 11:35] LABS: ALBUMIN 3.5 GM/DL (3.2-5.2); ALT/SGPT 40 U/L (12-78); BILIRUBIN,TOTAL 0.4 MG/DL (0.2-1.0); BLOOD UREA NITROGEN 12 MG/DL (7-18); CALCIUM LEVEL 8.8 MG/DL (8.8-10.2); CARBON DIOXIDE LEVEL 29 MEQ/L (21-32); CHLORIDE LEVEL 105 MEQ/L (98-107); CHOLESTEROL LEVEL 151 MG/DL (<200); CHOLESTEROL RISK RATIO 5.807 (<5); CREATININE FOR GFR 0.66 MG/DL (0.55-1.30); GLOMERULAR FILTRATION RATE > 60.0 (>45); GLUCOSE, FASTING 171 MG/DL (70-100); HDL CHOLESTEROL 26 MG/DL (>40); LDL CHOLESTEROL 67 MG/DL (<100); NON-HDL-C 125 MG/DL; POTASSIUM SERUM 4.5 MEQ/L (3.5-5.1); SODIUM LEVEL 138 MEQ/L (136-145); THYROID STIMULATING HORMONE 0.924 uIU/ML (0.358-3.740); TOTAL PROTEIN 6.8 GM/DL (6.4-8.2); TRIGLYCERIDES LEVEL 290 MG/DL (<150)
== END ==
LOC: M RAD 09:51
PROVIDERS: ATTEND Family Medicine
DX: Z01.818 Encounter for other preprocedural examination (principal); I10 Essential (primary) hypertension; E03.9 Hypothyroidism, unspecified

== ENCOUNTER → 2022-07-01 | Outpatient (CLI) | payer OTHER ==
[~2022-07-01] MED LIST changes: +BIOT50005 SL; +COLL1CAP PO; +ERGO500029 PO; +METF10004 PO; -PRAV40TA2; +PRAV40TA2 PO; +QC F0.52 PO; +TIZA4CAP PO; +VITMTA PO
== END ==
LOC: M LABSMTC 12:03
PROVIDERS: ATTEND Anesthesiology
DX: Z01.812 Encounter for preprocedural laboratory examination (principal); Z20.822 Contact with and (suspected) exposure to COVID-19

== ENCOUNTER 2022-07-06 06:06 | Observation (INO) | payer OTHER ==
[~2022-07-06] VITALS: Ht 158.8 cm; Wt 109.0 kg
[2022-07-06] VITALS (7 sets, daily range): BP systolic 152–160; BP diastolic 78–92
[~2022-07-06 06:06] MED LIST changes: +HEPARIN SOD (PORCINE) 5000UNITS/ML 1ML VIAL/SYRINGE SQ ONE
[2022-07-06] MEDS ORDERED: LR 1,000 ML IV SCH ×3 (06:35→10:15)
[2022-07-06] MEDS ORDERED: BUPIVACAINE HCL 0.25% 10ML VIAL As Ordered ONE (06:54)
[2022-07-06] MEDS ORDERED: GENTAMICIN SULF 80MG/2ML VIAL As Ordered ONE (06:54)
[2022-07-06] MEDS ORDERED: BUPIVACAINE LIPOSOME/PF 1.3% 20ML VIAL (13.3MG/ML)(EXPAREL) As Ordered ONE (06:54)
[2022-07-06] MEDS ORDERED: propofoL 200 MG/20 ML VIAL As Ordered ONE (07:04)
[2022-07-06] MEDS ORDERED: LIDOCAINE 2% 100MG/5ML SDV (FOR ANES.) As Ordered ONE (07:04)
[2022-07-06] MEDS ORDERED: fentaNYL 250 MCG/5 ML INJECTION As Ordered ONE (07:04)
[2022-07-06] MEDS ORDERED: ROCURONIUM BROMIDE 50 MG/5 ML VIAL As Ordered ONE ×2 (07:04→09:05)
[2022-07-06] MEDS ORDERED: MIDAZOLAM INJ 2MG/2ML VIAL (J2250 PER 1MG) As Ordered ONE (07:04)
[2022-07-06] MEDS ORDERED: ONDANSETRON 4MG 2ML VIAL As Ordered ONE (07:05)
[2022-07-06] MEDS ORDERED: dexameTHASONE 4 MG/ML 1ML VIAL (J1100 PER 1MG) As Ordered ONE (07:05)
[2022-07-06] MEDS ORDERED: ceFAZolin 2 GM/D5W 50 ML IV BAG (J0690 PER 500MG) As Ordered ONE (07:24)
[2022-07-06] MEDS ORDERED: ceFAZolin SOD 2 GM in IV 1 EA IV ONE (08:00)
[2022-07-06] MEDS ORDERED: SCOPOLAMINE 1MG TRANSDERMAL PATCH TOP SCH (08:00)
[2022-07-06] MEDS ORDERED: SCOPOLAMINE 1MG TRANSDERMAL PATCH As Ordered ONE (08:01)
[2022-07-06] MEDS ORDERED: METOCLOPRAMIDE INJ 10MG/2ML VIAL (J2765 PER 1) As Ordered ONE (08:14)
[2022-07-06] MEDS ORDERED: ACETAMINOPHEN 1000MG 100ML IV BTL (OFIRMEV) (J0131 PER 10MG) As Ordered ONE (08:19)
[2022-07-06] MEDS ORDERED: SUGAMMADEX SODIUM 500 MG/5 ML VIAL (BRIDION) As Ordered ONE (08:19)
[2022-07-06] MEDS ORDERED: ONDANSETRON 4MG 2ML VIAL IV PRN ×2 (09:55→10:15)
[2022-07-06] MEDS ORDERED: HYDROMORPHONE HCL 0.5 MG/ 0.5 ML SYRINGE (J1170 PER 1) IV PRN (09:55)
[2022-07-06] MEDS ORDERED: fentaNYL 100 MCG/2 ML INJECTION IV PRN (09:55)
[2022-07-06] MEDS ORDERED: oxyCODONE 5MG TAB PO PRN (09:55)
[2022-07-06] MEDS ORDERED: MORPHINE 2 MG/ML 1ML VIAL IV PRN (10:05)
[2022-07-06] MEDS ORDERED: ACETAMINOPHEN TAB 650MG DOSE (2X325MG) PO PRN (10:15)
[2022-07-06] MEDS ORDERED: HOME MED LIST COMPLETE! XX SCH (16:05)
[2022-07-06] MEDS: ceFAZolin SOD 2 GM in IV 1 EA IV SCH (16:43)
[2022-07-06] MEDS: traMADol 50 MG TAB PO PRN (16:43)
[2022-07-07] MEDS: ceFAZolin SOD 2 GM in IV 1 EA IV SCH (00:06)
[2022-07-07] MEDS: traMADol 50 MG TAB PO PRN ×2 (00:14→08:41)
[2022-07-07 01:35] VITALS: BP 145/59
[2022-07-07 06:19] VITALS: BP 132/57
[2022-07-07] MEDS ORDERED: ULTR50TA8 PO (08:56)
== END 2022-07-07 12:35 | disposition home or self-care (01) ==
LOC: M SDC 06:06 → M ED INP 06:07 → M MS5PR 12:00
PROVIDERS: ADMIT Surgery; ATTEND Surgery
DX: D05.12 Intraductal carcinoma in situ of left breast (principal); Z15.01 Genetic susceptibility to malignant neoplasm of breast; N62 Hypertrophy of breast; Z17.0 Estrogen receptor positive status [ER+]; Z80.3 Family history of malignant neoplasm of breast; Z80.0 Family history of malignant neoplasm of digestive organs; R11.10 Vomiting, unspecified; I10 Essential (primary) hypertension; E07.9 Disorder of thyroid, unspecified; Z88.5 Allergy status to narcotic agent
CPT/HCPCS: 19285; 19301; 19316; 36415; 76942; 86850; 86900; 86901; 88302; 88307; 96372; 96374; 96376; A4648; C9290; J0131; J0690; J1100; J1580; J1644; J2250; J2405; J2765; J3010

== ENCOUNTER → 2022-07-27 | Outpatient (CLI) | payer OTHER ==
[~2022-07-27] MED LIST changes: -HEPARIN SOD (PORCINE) 5000UNITS/ML 1ML VIAL/SYRINGE SQ ONE
== END ==
LOC: M ONCR 11:49
PROVIDERS: ATTEND General Practice
DX: C50.912 Malignant neoplasm of unspecified site of left female breast (principal); Z15.01 Genetic susceptibility to malignant neoplasm of breast; I10 Essential (primary) hypertension; N62 Hypertrophy of breast; Z80.3 Family history of malignant neoplasm of breast; Z79.84 Long term (current) use of oral hypoglycemic drugs; Z79.890 Hormone replacement therapy; Z79.899 Other long term (current) drug therapy; Z80.0 Family history of malignant neoplasm of digestive organs; Z80.1 Family history of malignant neoplasm of trachea, bronchus and lung; Z88.5 Allergy status to narcotic agent; Z85.42 Personal history of malignant neoplasm of other parts of uterus; Z87.891 Personal history of nicotine dependence; Z90.710 Acquired absence of both cervix and uterus

== ENCOUNTER 2022-08-28 14:53 | Outpatient (RCR) | payer OTHER ==
[2022-09-07] MEDS ORDERED: ANAS1TAB2 PO (15:16)
== END 2022-09-08 ==
LOC: M ONCR 14:53
PROVIDERS: ATTEND General Practice
DX: D05.12 Intraductal carcinoma in situ of left breast (principal)

== ENCOUNTER → 2022-09-18 | Outpatient (CLI) | payer OTHER ==
[~2022-09-18] MED LIST changes: +ANAS1TAB2 PO
== END ==
LOC: M WHC 10:29
PROVIDERS: ATTEND Specialist
DX: Z85.3 Personal history of malignant neoplasm of breast (principal); Z79.811 Long term (current) use of aromatase inhibitors

== ENCOUNTER → 2022-09-20 | Outpatient (CLI) | payer OTHER ==
[2022-09-20 09:56] LABS: HEMATOCRIT 43.9 % (36.0-47.0); HEMOGLOBIN 14.1 g/dl (12.0-15.5); MEAN CORPUSCULAR HEMOGLOBIN 29.3 pg (27.0-33.0); MEAN CORPUSCULAR HGB CONC 32.1 g/dl (32.0-36.5); MEAN CORPUSCULAR VOLUME 91.1 fl (80.0-96.0); PLATELET COUNT, AUTOMATED 284 10^3/uL (150-450); RED BLOOD COUNT 4.82 10^6/uL (4.00-5.40); WHITE BLOOD COUNT 7.1 10^3/uL (4.0-10.0)
[2022-09-20 10:25] LABS: THYROID STIMULATING HORMONE 1.064 uIU/ML (0.55-4.78)
[2022-09-20 10:26] LABS: ALBUMIN 3.7 G/DL (3.2-5.2); ALKALINE PHOSPHATASE 65 U/L (46-116); ALT/SGPT 28 U/L (7.0-40); AST/SGOT 21 U/L (<34); BILIRUBIN,TOTAL 0.5 MG/DL (0.3-1.2); BLOOD UREA NITROGEN 14 MG/DL (9-23); CALCIUM LEVEL 9.7 MG/DL (8.3-10.6); CARBON DIOXIDE LEVEL 30 MMOL/L (20-31); CHLORIDE LEVEL 104 MMOL/L (98-107); CHOLESTEROL LEVEL 176 MG/DL (<200); CHOLESTEROL RISK RATIO 6.11 (<5); CREATININE FOR GFR 0.61 MG/DL (0.55-1.30); GLOMERULAR FILTRATION RATE > 60.0 (>45); GLUCOSE, FASTING 139 MG/DL (74-106); HDL CHOLESTEROL 28.8 MG/DL (>40); LDL CHOLESTEROL 104.8 MG/DL (<100); NON-HDL-C 147 MG/DL; POTASSIUM SERUM 5.2 MMOL/L (3.5-5.1); SODIUM LEVEL 141 MMOL/L (136-145); TOTAL PROTEIN 6.9 G/DL (5.7-8.2); TRIGLYCERIDES LEVEL 212 MG/DL (<150)
[2022-09-20 10:46] LABS: HEMOGLOBIN A1c 6.2 % (4.0-6.0)
[2022-09-20 14:37] LABS: TOTAL 25(OH) VITAMIN D 106.2 NG/ML (20.0-100.0)
== END ==
LOC: M LAB 09:19
PROVIDERS: ATTEND Family Medicine
DX: I10 Essential (primary) hypertension (principal)

== ENCOUNTER → 2023-02-26 | Outpatient (CLI) | payer OTHER | LOC: M ONCR 14:57 | PROVIDERS: ATTEND General Practice | DX: D05.12 Intraductal carcinoma in situ of left breast (principal); Z79.811 Long term (current) use of aromatase inhibitors; Z79.84 Long term (current) use of oral hypoglycemic drugs; Z87.891 Personal history of nicotine dependence; Z79.899 Other long term (current) drug therapy; Z92.3 Personal history of irradiation ==

== ENCOUNTER → 2023-03-21 | Outpatient (CLI) | payer OTHER ==
[2023-03-21 07:43] LABS: HEMATOCRIT 43.4 % (36.0-47.0); HEMOGLOBIN 13.7 g/dl (12.0-15.5); MEAN CORPUSCULAR HEMOGLOBIN 29.2 pg (27.0-33.0); MEAN CORPUSCULAR HGB CONC 31.6 g/dl (32.0-36.5); MEAN CORPUSCULAR VOLUME 92.5 fl (80.0-96.0); PLATELET COUNT, AUTOMATED 326 10^3/uL (150-450); RED BLOOD COUNT 4.69 10^6/uL (4.00-5.40); WHITE BLOOD COUNT 8.4 10^3/uL (4.0-10.0)
[2023-03-21 07:58] LABS: HEMOGLOBIN A1c 5.6 % (4.0-6.0)
[2023-03-21 08:09] LABS: ALBUMIN 3.6 G/DL (3.2-5.2); ALKALINE PHOSPHATASE 58 U/L (46-116); ALT/SGPT 12 U/L (7.0-40); AST/SGOT < 8 U/L (<34); BILIRUBIN,TOTAL 0.6 MG/DL (0.3-1.2); BLOOD UREA NITROGEN 19 MG/DL (9-23); CARBON DIOXIDE LEVEL 32 MMOL/L (20-31); CHLORIDE LEVEL 107 MMOL/L (98-107); CHOLESTEROL LEVEL 190 MG/DL (<200); CHOLESTEROL RISK RATIO 5.13 (<5); CREATININE FOR GFR 0.54 MG/DL (0.55-1.30); GLOMERULAR FILTRATION RATE > 60.0 (>45); GLUCOSE, FASTING 119 MG/DL (74-106); LDL CHOLESTEROL 117.4 MG/DL (<100); POTASSIUM SERUM 4.4 MMOL/L (3.5-5.1); SODIUM LEVEL 141 MMOL/L (136-145); TOTAL PROTEIN 6.6 G/DL (5.7-8.2); TRIGLYCERIDES LEVEL 178 MG/DL (<150)
[2023-03-21 08:10] LABS: THYROID STIMULATING HORMONE 0.855 uIU/ML (0.55-4.78); TOTAL 25(OH) VITAMIN D 109.5 NG/ML (20.0-100.0)
== END ==
LOC: M LAB 07:11
PROVIDERS: ATTEND Family Medicine
DX: I10 Essential (primary) hypertension (principal); R53.83 Other fatigue; E03.9 Hypothyroidism, unspecified

== ENCOUNTER → 2023-04-09 | Outpatient (CLI) | payer OTHER ==
[~2023-04-09] MED LIST changes: +METF-838
== END ==
LOC: M WHC 11:08
PROVIDERS: ATTEND Nurse Practitioner Women's Health
DX: C50.912 Malignant neoplasm of unspecified site of left female breast (principal); Z91.89 Other specified personal risk factors, not elsewhere classified; Z15.01 Genetic susceptibility to malignant neoplasm of breast
CPT/HCPCS: 77066; G0279

== ENCOUNTER → 2023-05-07 | Outpatient (CLI) | payer OTHER ==
[2023-05-07 09:08] LABS: BASO # 0.1 10^3/uL (0.0-0.2); BASO % 1.1 % (0.0-1.0); EOS # 0.3 10^3/uL (0.0-0.5); EOS % 3.9 % (0.0-3.0); HEMATOCRIT 40.5 % (36.0-47.0); HEMOGLOBIN 12.8 g/dl (12.0-15.5); LYMPH # 2.6 10^3/uL (1.5-5.0); LYMPH % 32.8 % (24.0-44.0); MEAN CORPUSCULAR HEMOGLOBIN 28.9 pg (27.0-33.0); MEAN CORPUSCULAR HGB CONC 31.6 g/dl (32.0-36.5); MEAN CORPUSCULAR VOLUME 91.4 fl (80.0-96.0); MONO # 0.5 10^3/uL (0.0-0.8); NEUTROPHILS # 4.5 10^3/uL (1.5-8.5); NEUTROPHILS % 55.8 % (36.0-66.0); PLATELET COUNT, AUTOMATED 308 10^3/uL (150-450); RED BLOOD COUNT 4.43 10^6/uL (4.00-5.40)
[2023-05-07 09:14] LABS: ALBUMIN 3.4 G/DL (3.2-5.2); ALKALINE PHOSPHATASE 62 U/L (46-116); ALT/SGPT 15 U/L (7.0-40); AST/SGOT 11 U/L (<34); BILIRUBIN,TOTAL 0.6 MG/DL (0.3-1.2); BLOOD UREA NITROGEN 14 MG/DL (9-23); CALCIUM LEVEL 9.1 MG/DL (8.3-10.6); CARBON DIOXIDE LEVEL 30 MMOL/L (20-31); CHLORIDE LEVEL 106 MMOL/L (98-107); CHOLESTEROL LEVEL 183 MG/DL (<200); CHOLESTEROL RISK RATIO 4.72 (<5); CREATININE FOR GFR 0.58 MG/DL (0.55-1.30); GLOMERULAR FILTRATION RATE > 60.0 (>45); GLUCOSE, FASTING 127 MG/DL (74-106); HDL CHOLESTEROL 38.7 MG/DL (>40); LDL CHOLESTEROL 112.9 MG/DL (<100); NON-HDL-C 144.3 MG/DL; POTASSIUM SERUM 4.5 MMOL/L (3.5-5.1); SODIUM LEVEL 142 MMOL/L (136-145); TOTAL PROTEIN 6.6 G/DL (5.7-8.2); TRIGLYCERIDES LEVEL 157 MG/DL (<150)
[2023-05-07 09:17] LABS: THYROID STIMULATING HORMONE 1.144 uIU/ML (0.55-4.78)
[2023-05-07 09:21] LABS: INR 0.97; PROTHROMBIN TIME 12.6 SECONDS (12.5-14.5)
[2023-05-07 11:09] LABS: HEMOGLOBIN A1c 5.4 % (4.0-6.0)
== END ==
LOC: M LAB 07:55
PROVIDERS: ATTEND Family Medicine
DX: Z01.812 Encounter for preprocedural laboratory examination (principal); I10 Essential (primary) hypertension; R53.83 Other fatigue

== ENCOUNTER 2023-05-30 07:28 | Day surgery (SDC) | payer OTHER ==
[~2023-05-30] VITALS: Ht 157.5 cm; Wt 90.0 kg
[~2023-05-30 07:28] MED LIST changes: +HEPARIN SOD (PORCINE) 5000UNITS/ML 1ML VIAL/SYRINGE SQ ONE; +LIDOCAINE 2% 100MG/5ML SDV (FOR ANES.) As Ordered ONE; -METF-838; +METF-838 PO; +MIDAZOLAM INJ 2MG/2ML VIAL As Ordered ONE; +OMEG10002 PO; +ONDANSETRON 4MG 2ML VIAL As Ordered ONE; +PROBCAP14 PO; +ceFAZolin SOD 2 GM in IV 1 EA IV ONE; +fentaNYL 100 MCG/2 ML INJECTION As Ordered ONE; +propofoL 200 MG/20 ML VIAL As Ordered ONE
[2023-05-30] MEDS ORDERED: LR 1,000 ML IV SCH ×2 (07:40→11:05)
[2023-05-30] MEDS ORDERED: SUGAMMADEX SODIUM 500 MG/5 ML VIAL (BRIDION) As Ordered ONE (07:52)
[2023-05-30] MEDS ORDERED: ROCURONIUM BROMIDE 50MG/5ML VIAL As Ordered ONE ×2 (07:52→10:38)
[2023-05-30] MEDS ORDERED: GENTAMICIN SULF 80MG/2ML VIAL As Ordered ONE (08:41)
[2023-05-30] MEDS ORDERED: ACETAMINOPHEN 1000MG 100ML IV BAG As Ordered ONE (09:32)
[2023-05-30] MEDS ORDERED: fentaNYL 100 MCG/2 ML INJECTION As Ordered ONE (09:40)
[2023-05-30] MEDS ORDERED: LIDOCAINE 2% 100MG/5ML SDV (FOR ANES.) As Ordered ONE (10:49)
[2023-05-30] MEDS ORDERED: fentaNYL 100 MCG/2 ML INJECTION IV PRN (11:05)
[2023-05-30] MEDS ORDERED: HYDROMORPHONE HCL 0.5 MG/ 0.5 ML SYRINGE IV PRN (11:05)
[2023-05-30] MEDS ORDERED: ONDANSETRON 4MG 2ML VIAL IV PRN (11:05)
[2023-05-30] MEDS ORDERED: HYDROmorphone HCL 2MG/ML 1ML VIAL As Ordered ONE (11:08)
[2023-05-30] MEDS: oxyCODONE 5MG TAB PO PRN ×2 (12:25→13:19)
[2023-05-30] MEDS ORDERED: TRAM50TA2 PO (13:24)
[2023-05-30 14:20] VITALS: BP 136/61; TEMP 97.2; O2SAT 96
== END 2023-05-30 14:23 | disposition home or self-care (01) ==
LOC: M SDC 07:28
PROVIDERS: ATTEND Plastic Surgery Surgery of the Hand
DX: N65.1 Disproportion of reconstructed breast (principal); Z85.3 Personal history of malignant neoplasm of breast; E11.9 Type 2 diabetes mellitus without complications; Z88.5 Allergy status to narcotic agent; Z79.84 Long term (current) use of oral hypoglycemic drugs; Z87.891 Personal history of nicotine dependence
CPT/HCPCS: 19318; 88305; C9290; J0131; J0665; J0690; J1100; J1170; J1580; J2250; J2405; J3010

== ENCOUNTER 2023-08-21 06:54 | Day surgery (SDC) | payer OTHER ==
[~2023-08-21] VITALS: Ht 157.5 cm; Wt 93.4 kg
[~2023-08-21 06:54] MED LIST changes: +CALC500C16 PO; -HEPARIN SOD (PORCINE) 5000UNITS/ML 1ML VIAL/SYRINGE SQ ONE; -LIDOCAINE 2% 100MG/5ML SDV (FOR ANES.) As Ordered ONE; -MIDAZOLAM INJ 2MG/2ML VIAL As Ordered ONE; +NS 1,000 ML IV ONE; -ONDANSETRON 4MG 2ML VIAL As Ordered ONE; +TRAM50TA2 PO; -ceFAZolin SOD 2 GM in IV 1 EA IV ONE; -fentaNYL 100 MCG/2 ML INJECTION As Ordered ONE; -propofoL 200 MG/20 ML VIAL As Ordered ONE
[2023-08-21] MEDS ORDERED: LIDOCAINE 2% 100MG/5ML SDV (FOR ANES.) As Ordered ONE (06:59)
[2023-08-21] MEDS ORDERED: propofoL 200 MG/20 ML VIAL As Ordered ONE (07:00)
[2023-08-21 08:43] VITALS: BP 191/85; O2SAT 99
== END 2023-08-21 08:48 | disposition home or self-care (01) ==
LOC: M OPP 06:54
PROVIDERS: ATTEND Internal Medicine Gastroenterology
DX: D12.6 Benign neoplasm of colon, unspecified (principal); K64.0 First degree hemorrhoids; K57.30 Diverticulosis of large intestine without perforation or abscess without bleeding; Z86.03 Personal history of neoplasm of uncertain behavior; E11.9 Type 2 diabetes mellitus without complications; Z79.02 Long term (current) use of antithrombotics/antiplatelets; Z79.84 Long term (current) use of oral hypoglycemic drugs; Z79.890 Hormone replacement therapy; Z79.899 Other long term (current) drug therapy

== ENCOUNTER → 2023-10-11 | Outpatient (CLI) | payer OTHER ==
[~2023-10-11] MED LIST changes: -NS 1,000 ML IV ONE; +PROHANCE 279.3MG/ML 15ML VIAL ONE; +PROHANCE 279.3MG/ML 5ML VIAL ONE
== END ==
LOC: M PLAIMG 14:26
PROVIDERS: ATTEND Nurse Practitioner Women's Health
DX: Z15.01 Genetic susceptibility to malignant neoplasm of breast (principal); Z80.3 Family history of malignant neoplasm of breast

== ENCOUNTER → 2024-02-28 | Outpatient (CLI) | payer OTHER ==
[~2024-02-28] MED LIST changes: -PROHANCE 279.3MG/ML 15ML VIAL ONE; -PROHANCE 279.3MG/ML 5ML VIAL ONE
== END ==
LOC: M ONCR 10:49
PROVIDERS: ATTEND General Practice
DX: Z08 Encounter for follow-up examination after completed treatment for malignant neoplasm (principal); Z85.3 Personal history of malignant neoplasm of breast; Z71.2 Person consulting for explanation of examination or test findings; Z92.3 Personal history of irradiation; Z87.891 Personal history of nicotine dependence; Z88.5 Allergy status to narcotic agent; Z79.811 Long term (current) use of aromatase inhibitors; Z79.899 Other long term (current) drug therapy; Z79.84 Long term (current) use of oral hypoglycemic drugs

== ENCOUNTER → 2024-09-22 | Outpatient (CLI) | payer OTHER ==
[~2024-09-22] MED LIST changes: +FARX1TAB5 PO; +THERTAB52 PO
== END ==
LOC: M WHC 09:08
PROVIDERS: ATTEND Internal Medicine Medical Oncology
DX: M88.851 Osteitis deformans of right thigh (principal)

== ENCOUNTER → 2024-10-14 | Outpatient (CLI) | payer OTHER | LOC: M WHC 15:30 | PROVIDERS: ATTEND Specialist | DX: Z12.31 Encounter for screening mammogram for malignant neoplasm of breast (principal) ==

== ENCOUNTER → 2024-11-25 | Outpatient (CLI) | payer OTHER ==
[~2024-11-25] MED LIST changes: +PROHANCE 279.3MG/ML 15ML VIAL As Ordered ONE; +PROHANCE 279.3MG/ML 5ML VIAL As Ordered ONE; +viviscal PO
== END ==
LOC: M RAD 08:29
PROVIDERS: ATTEND Specialist
DX: C50.919 Malignant neoplasm of unspecified site of unspecified female breast (principal); Z88.5 Allergy status to narcotic agent; K76.0 Fatty (change of) liver, not elsewhere classified; K80.20 Calculus of gallbladder without cholecystitis without obstruction
CPT/HCPCS: 74183; A9576

== ENCOUNTER → 2025-05-21 | Outpatient (CLI) | payer OTHER ==
[~2025-05-21] MED LIST changes: -PRAV40TA2 PO; +PRAV40TA85 PO; -PROHANCE 279.3MG/ML 15ML VIAL As Ordered ONE; +PROHANCE 279.3MG/ML 15ML VIAL ONE; -PROHANCE 279.3MG/ML 5ML VIAL As Ordered ONE; +PROHANCE 279.3MG/ML 5ML VIAL ONE
== END ==
LOC: M PLAIMG 13:58
PROVIDERS: ATTEND Surgery
DX: R92.313 Mammographic fatty tissue density, bilateral breasts (principal); Z85.3 Personal history of malignant neoplasm of breast; Z15.01 Genetic susceptibility to malignant neoplasm of breast; Z15.09 Genetic susceptibility to other malignant neoplasm
CPT/HCPCS: A9576; C8908

== ENCOUNTER → 2025-07-01 | Outpatient (CLI) | payer OTHER ==
[~2025-07-01] MED LIST changes: +CINN500C2 PO; -PROHANCE 279.3MG/ML 15ML VIAL ONE; -PROHANCE 279.3MG/ML 5ML VIAL ONE
== END ==
LOC: M WUC 15:23
PROVIDERS: ATTEND Physician Assistant Medical
DX: M25.512 Pain in left shoulder (principal); M25.522 Pain in left elbow; M19.012 Primary osteoarthritis, left shoulder